=== PATIENT | female | born 1975 | race Asian ===

== ENCOUNTER 2025-06-09 17:13 | Emergency (ER) | payer OTHER ==
[~2025-06-09] VITALS: Ht 157.5 cm; Wt 48.8 kg
[2025-06-09] MEDS: HYDROcodone-ACET 5/325MG TAB PO ONE (20:15)
[2025-06-09] MEDS: LIDOCAINE 1% HCL (LOCAL ANESTH.) INJ 20ML MDV ID ONE (21:02)
[2025-06-09] MEDS ORDERED: AUG875T PO (21:07)
[2025-06-09] MEDS ORDERED: IBUP-1456 PO (21:07)
--- NOTE | 2025-06-09 21:08 | ED.PDOC ---
HPI Comments PT WALKED INTO ED WITH C/O DOG BITE TO RIGHT UPPER/LOWER EXTREMITY. PUNCTURE WOUNDS NOTED TO RIGHT ANKLE AND RIGHT FOREARM. WOUNDS CLEANED AND DRESSED WITH GAUZE. PT IS ALERT AND STATED THAT HER (LARGE BREED)DOGS WERE FIGHTING WHICH IS HOW SHE WAS BIT (+) FATTY TISSUE AND MUSCLE EXPOSURE TO RIGHT FOREARM. (+) FATTY TISSUE TO RIGHT LOWER EXTREMITY GCS 15, ALL VSS Chief Complaint: Animal Bite Time Seen by MD: 17:58 Reviewed Notes: Nurses Notes, Medications, Allergies Allergies: Coded Allergies: Ciprofloxacin (Verified Allergy, Unknown, 06/09/25) Home Meds Discontinued Scripts Amoxicillin & Pot Clavulanate (AUGMENTIN TABLET) 875 Mg Tb, 875 MG PO BID for 7 Days, #14 TAB Prov:LAUREN COHEN HAT FINISHER 06/09/25 Ibuprofen (Ibuprofen) 800 Mg Tab, 800 MG PO Q8HP PRN for 6 Days, #18 TAB Prov:LAUREN COHEN HAT FINISHER 06/09/25 Information Source: Patient Mode of Arrival: Ambulatory Complexity: Complex Laceration Length (cm): 4 Skin Type: Avulsion, Flap, Irregular Depth of Injury: Muscle Tender: Severe Discharge: Bloody Erythema: None Associated Signs and Symptoms: None Past Medical History PAST MEDICAL HISTORY: Denies Surgical History: Denies all surgeries [employer] OFF[employer] History: No 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 History Family History Family History: Unknown Social History Smoker: Non-Smoker Alcohol: Denies ETOH Use Drugs: Denies Drug Use All Other Systems: Reviewed and Negative (See HPI) Physical Exam General Appearance: No Apparent Distress, Normal HEENT: Pharynx Normal Neck: Full Range of Motion, Non-Tender Respiratory: Lungs Clear, No Respiratory Distress, Normal Breath Sounds Cardiovascular: No Murmur, Normal Peripheral Pulses, Regular Rate/Rhythm Breast Exam: Deferred Gastrointestinal: Non Tender, Soft Genitalia: Deferred Pelvic: Deferred Rectal: Deferred Extremities: Normal range of motion Musculoskeletal : Apperance: Normal Neurologic: Alert, No Motor Deficits, Normal Affect, Normal Mood, No Sensory Deficits Cerebellar Function: Normal Reflexes: NOT DONE Skin: Dry, Lacerations (Approximate large 4 cm full-thickness avulsion to right anterior proximal forearm no obvious foreign body bleeding controlled), Normal Color, Warm Lymphatic: No Adenopathy Was a procedure done? Was a procedure done?: Yes Sedation Sedation?: No Informed consent obtained: Yes Laceration Repair : Location Right anterior proximal forearm Length 4 cm Anesthetic: Lidocaine, Without epi Laceration Repair Prep: Saline, by Irrigation Laceration Repair Wound Comple: epidermis/dermis repair Laceration Repair: Number of sutures (11), Nylon Informed consent obtained: Yes Risks, benefits, and alternati: Yes (Patient tolerated well with minimal blood loss) Differential diagnosis Generic Laceration: Fracture, Retained Foriegn Body, Neurovascular Injury, Tendon Injury, Abrasion/Contusion, Laceration X-Ray, Labs, Meds, VS Vital Signs Date Time Temp Pulse Resp B/P (MAP) Pulse Ox O2 Delivery O2 Flow Rate FiO2 06/09/25 21:40 98.8 89 17 116/68 (84) 98 98.8 06/09/25 21:40 89 17 06/09/25 17:15 98.5 102 19 109/59 95 98.5 X-Ray, Labs, Meds, VS Comment SEE PROCEDURE NOTE. Advised [id number] Tylenol or Motrin as needed for the pain per labeled dosing instructions. Suture removal within 5-7 days. Advised to follow up urgent care primary care or back in the ER for removal. Advised to monitor for signs and symptoms of infection and uncontrolled bleeding return to the ER as indicated. Pt indicate understanding and agree with discharge plan of care. Time of 1ST Reevaluation: 17:58 Reevaluation 1ST: Unchanged Time of 2ND Reevaluation: 21:07 Reevaluation 2ND: Improved Patient Education/Counseling: Diagnosis, Treatment, Need For Follow Up Family Education/Counseling: No Family Present Departure 1 Departure Time of Disposition: 21:06 Impression: Primary Impression: Dog bite of right arm Qualified Codes: S41.151A - Open bite of right upper arm, initial encounter; W54.0XXA - Bitten by dog, initial encounter Disposition: 01 HOME / SELF CARE / HOMELESS Condition: Stable Additional Instructions: Sutures removed in 5-7 days. Keep covered and dry for 24 hours. 24 hours can remove dressing wash gently several times a day with warm soapy water pat dry and redress ER for increasing redness, swelling, bleeding, pain, fever or chills. Discharged With: Self Critical Care Note Critical Care Time?: No Stability Stability form required: LAUREN Graham Jun 09, 2025 21:08
[2025-06-09] MEDS: cefTRIAXone SOD 1,000 MG VL IM ONE (21:23)
[2025-06-09] MEDS: TETANUS-DIPTH-ACEL PERTUSSIS 0.5ML SYR Tdap IM ONE (21:24)
[2025-06-09 21:40] VITALS: BP 116/68; PULSE 89; RESP 17; TEMP 98.8; O2SAT 98
== END 2025-06-09 21:49 | disposition home or self-care (01) ==
LOC: ER 17:13
DX: S51.811A Laceration without foreign body of right forearm, initial encounter (principal); S41.151A Open bite of right upper arm, initial encounter; Z88.1 Allergy status to other antibiotic agents; Z79.899 Other long term (current) drug therapy; W54.0XXA Bitten by dog, initial encounter; Y93.89 Activity, other specified; Y92.89 Other specified places as the place of occurrence of the external cause; Y99.8 Other external cause status
CPT/HCPCS: 12002; 90471; 90715; 96372; 99284; A4649; J0696; J2003; 12001